=== PATIENT | female | born 1935 | race Caucasian/White ===

== ENCOUNTER → 2017-03-20 | Outpatient (CLI) | payer MEDICARE, BC ==
--- NOTE | 2017-03-20 11:44 | MM ---
Reason for exam: follow-up at short interval from prior study. Last mammogram was performed 6 months ago. History: Patient is postmenopausal, has history of other cancer at age 78, and has history of breast cancer at age 43. Family history of breast cancer in mother at age 56. Lumpectomy of the left breast, December 30, 2013. Malignant US LT VAD breast biopsy of the left breast, December 19, 2013. Radiation therapy of the left breast, 2013. Silicone gel implant in the right breast, 1979. Reduction of the left breast, 1979. Mastectomy of the right breast, 1977. Excisional biopsy of the left breast. Radiation therapy of the right breast. Took hormonal contraceptives for 5 years beginning at age 33. Took estrogen for 1 year beginning at age 43. Physical Findings: Nurse did not find any significant physical abnormalities on exam. MG 3D Diag Mammo W/Cad LT CC and MLO view(s) were taken of the left breast. Prior study comparison: September 19, 2016, left breast MG 3d diag mammo w/cad LT. September 16, 2015, left breast MG 3d diag mammo w/cad LT. The breast tissue is heterogeneously dense. This may lower the sensitivity of mammography. Benign calcifications. Post operative distortion in the left breast. These results were verbally communicated with the patient and result sheet given to the patient on 03/20/17. ASSESSMENT: Benign, BI-RAD 2 RECOMMENDATION: Follow-up diagnostic mammogram of the left breast in 6 months. Back on schedule August 2017.
== END | disposition home or self-care (01) ==
LOC: RADMAMWWP 10:45
PROVIDERS: ATTEND Radiology Diagnostic Radiology
DX: Z08 Encounter for follow-up examination after completed treatment for malignant neoplasm (principal); Z85.3 Personal history of malignant neoplasm of breast
CPT/HCPCS: G0206; G0279

== ENCOUNTER 2017-12-09 21:20 | Inpatient (IN) | payer MEDICARE, BC ==
[2017-12-09] MEDS ORDERED: SODIUM CHLORIDE 0.9% 1,000 ML IV STA (21:54)
[2017-12-09] MEDS ORDERED: MORPHINE SULFATE 2 MG/ML SYRINGE IVP STA (22:11)
[2017-12-09] MEDS ORDERED: NITROGLYCERIN SL TABS 0.4 MG TAB SUBLINGUAL STA (22:17)
[2017-12-09] MEDS ORDERED: LABETALOL 5 MG/ML VIAL MDV IVP STA (22:18)
--- NOTE | 2017-12-09 22:23 | ED ---
SOB HPI - General Chief Complaint: Shortness of Breath Stated Complaint: Coughing up blood, SOB Time Seen by Provider: 12/09/17 21:36 Source: patient, RN notes reviewed, old records reviewed Mode of arrival: ambulatory Limitations: no limitations - History of Present Illness Initial Comments: 82-year-old female history of episodes of coughing up blood today. She reports she was brushing her teeth and all this and had severe coughing episodes with approximately one to 2 cups of blood that she spit up. Patient reports that she has had no fever or chills. She reports that when she arrived to ED she started to become short of breath. She also complains of some heaviness on her chest. Patient states that she has had no history of heart disease. She reports she has history of breast cancer with remission. Patient states that she has no abdominal pain. She reports she's had normal bowel movements today. She reports is relatively active patient. She exercises multiple times during the week. - Related Data Allergies Allergy/AdvReac Type Severity Reaction Status Date / Time No Known Allergies Allergy Verified 12/09/17 21:31 Review of Systems ROS Statement: Those systems with pertinent positive or pertinent negative responses have been documented in the HPI. ROS Other: All systems not noted in ROS Statement are negative. Past Medical History Past Medical History: Thyroid Disorder History of Any Multi-Drug Resistant Organisms: None Reported Past Surgical History: Appendectomy, Breast Surgery, Hysterectomy Additional Past Surgical History / Comment(s): right side masectomy; left side breast lumpectomy Past Psychological History: No Psychological Hx Reported Smoking Status: Former smoker Past Alcohol Use History: None Reported Past Drug Use History: None Reported General Exam - General Exam Comments Initial Comments: 82-year-old female. Patient appears in moderate distress and discomfort. Limitations: no limitations General appearance: alert, in no apparent distress Head exam: Present: atraumatic, normocephalic, normal inspection Eye exam: Present: normal appearance, PERRL, EOMI. Absent: scleral icterus, conjunctival injection, periorbital swelling ENT exam: Present: normal exam, mucous membranes moist Neck exam: Present: normal inspection. Absent: tenderness, meningismus, lymphadenopathy Respiratory exam: Present: decreased breath sounds (diminished right lower lung sounds), other (Patient has some diminished lung sounds noted over right. ). Absent: normal lung sounds bilaterally, respiratory distress, wheezes, rales, rhonchi, stridor Cardiovascular Exam: Present: regular rate, normal rhythm, normal heart sounds. Absent: systolic murmur, diastolic murmur, rubs, gallop, clicks GI/Abdominal exam: Present: soft, normal bowel sounds. Absent: distended, tenderness, guarding, rebound, rigid Back exam: Present: normal inspection Neurological exam: Present: alert, oriented X3, CN II-XII intact Psychiatric exam: Present: normal affect, normal mood Skin exam: Present: warm, dry, intact, normal color. Absent: rash Course Vital Signs 12/09/17 12/09/17 12/09/17 21:27 22:09 22:25 Temperature 98.1 F Pulse Rate 115 H 94 96 Pulse Rate [ Publication Manager ] Respiratory 22 18 20 Rate Blood Pressure 229/96 209/84 151/65 O2 Sat by Pulse 93 L 99 100 Oximetry 12/09/17 12/09/17 12/10/17 22:40 23:03 00:31 Temperature 97.6 F Pulse Rate 93 93 Pulse Rate [ 92 Publication Manager ] Respiratory 18 18 Rate Blood Pressure 152/70 170/76 O2 Sat by Pulse 98 96 Oximetry 12/10/17 12/10/17 12/10/17 01:29 01:45 02:00 Temperature 97.4 F L Pulse Rate 92 88 96 Pulse Rate [ Publication Manager ] Respiratory 18 20 Rate Blood Pressure 170/74 165/78 O2 Sat by Pulse 99 97 Oximetry 12/10/17 02:02 Temperature Pulse Rate 92 Pulse Rate [ Publication Manager ] Respiratory Rate Blood Pressure O2 Sat by Pulse Oximetry Medical Decision Making - Medical Decision Making Patient is a 2-year-old female presents emergency Department with an episode of hemoptysis. She reports she coughed up one to 2 cups of blood. Patient reports that she was feeling fine prior to this. No fever or chills or other significant coughing prior to this. Patient reports that when she arrived here she started to become short of breath. Patient did arrive and seemed significantly anxious as well. Complains of a heaviness on her chest. Patient did arrive to emergency department hypertensive with blood pressure of 229/100. Patient was given IV fluids labwork obtained. Patient was given IV labetalol. Due to the chest heaviness I did give the patient nitro and aspirin. Patient EKG was performed and did show some ST abnormalities. Patient 's lab work was reviewed. Negative d-dimer. Negative troponin. White count was within normal limits. Her chest x-ray was reviewed and shows no significant abnormalities. At this time is concerned due to the patient's continued chest discomfort and the concern with the hemoptysis. CT chest was ordered. There is evidence of a right middle lobe infiltrate. This Plain patient hemoptysis, chest discomfort and shortness of breath. She had no significant wheezing. Did have some diminished lung sounds on her right side. At this time I started the patient on Levaquin for pneumonia. Given breathing treatments. Due to hemoptysis I discussed with Dr. Burroughs. We will not heparinize the patient at this time. We will complete serial cardiac enzymes. Patient's case will be discussed by Dr. Burroughs with Dr. Pena in the morning. - Lab Data Result diagrams: 12/09/17 22:00 12/09/17 22:00 Lab Results 12/09/17 12/09/17 12/09/17 Range/Units 22:00 22:00 22:00 WBC 4.8 (3.8-10.6) k/uL RBC 4.33 (3.80-5.40) m/uL Hgb 13.2 (11.4-16.0) gm/dL Hct 39.9 (34.0-46.0) % MCV 92.0 (80.0-100.0) fL MCH 30.5 (25.0-35.0) pg MCHC 33.2 (31.0-37.0) g/dL RDW 13.4 (11.5-15.5) % Plt Count 283 (150-450) k/uL Neutrophils % 55 % Lymphocytes % 32 % Monocytes % 6 % Eosinophils % 3 % Basophils % 1 % Neutrophils # 2.7 (1.3-7.7) k/uL Lymphocytes # 1.6 (1.0-4.8) k/uL Monocytes # 0.3 (0-1.0) k/uL Eosinophils # 0.1 (0-0.7) k/uL Basophils # 0.0 (0-0.2) k/uL PT (9.0-12.0) sec INR (<1.2) APTT (22.0-30.0) sec D-Dimer (<0.60) mg/L FEU Sodium 143 (137-145) mmol/L Potassium 4.5 (3.5-5.1) mmol/L Chloride 108 H (98-107) mmol/L Carbon Dioxide 26 (22-30) mmol/L Anion Gap 9 mmol/L BUN 24 H (7-17) mg/dL Creatinine 0.60 (0.52-1.04) mg/dL Est GFR (MDRD) Af Amer >60 (>60 ml/min/1.73 sqM) Est GFR (MDRD) Non-Af >60 (>60 ml/min/1.73 sqM) Glucose 124 H (74-99) mg/dL Calcium 9.3 (8.4-10.2) mg/dL Magnesium 1.9 (1.6-2.3) mg/dL Total Bilirubin 0.2 (0.2-1.3) mg/dL AST 25 (14-36) U/L ALT 37 (9-52) U/L Alkaline Phosphatase 71 (38-126) U/L Total Creatine Kinase 50 (30-135) U/L CK-MB (CK-2) 1.1 (0.0-2.4) ng/mL CK-MB (CK-2) Rel Index 2.2 Troponin I <0.012 (0.000-0.034) ng/mL NT-Pro-B Natriuret Pep pg/mL Total Protein 6.5 (6.3-8.2) g/dL Albumin 3.6 (3.5-5.0) g/dL Urine Color Urine Appearance (Clear) Urine pH (5.0-8.0) Ur Specific [place] (1.001-1.035) Urine Protein (Negative) Urine Glucose (UA) (Negative) Urine Ketones (Negative) Urine Blood (Negative) Urine Nitrite (Negative) Urine Bilirubin (Negative) Urine Urobilinogen (<2.0) mg/dL Ur Leukocyte Esterase (Negative) Urine RBC (0-5) /hpf Urine WBC (0-5) /hpf Ur Squamous Epith Cells (0-4) /hpf Urine Mucus (None) /hpf 12/09/17 12/09/17 12/09/17 Range/Units 22:00 22:00 23:45 WBC (3.8-10.6) k/uL RBC (3.80-5.40) m/uL Hgb (11.4-16.0) gm/dL Hct (34.0-46.0) % MCV (80.0-100.0) fL MCH (25.0-35.0) pg MCHC (31.0-37.0) g/dL RDW (11.5-15.5) % Plt Count (150-450) k/uL Neutrophils % % Lymphocytes % % Monocytes % % Eosinophils % % Basophils % % Neutrophils # (1.3-7.7) k/uL Lymphocytes # (1.0-4.8) k/uL Monocytes # (0-1.0) k/uL Eosinophils # (0-0.7) k/uL Basophils # (0-0.2) k/uL PT 9.7 (9.0-12.0) sec INR 1.0 (<1.2) APTT 22.6 (22.0-30.0) sec D-Dimer 0.55 (<0.60) mg/L FEU Sodium (137-145) mmol/L Potassium (3.5-5.1) mmol/L Chloride (98-107) mmol/L Carbon Dioxide (22-30) mmol/L Anion Gap mmol/L BUN (7-17) mg/dL Creatinine (0.52-1.04) mg/dL Est GFR (MDRD) Af Amer (>60 ml/min/1.73 sqM) Est GFR (MDRD) Non-Af (>60 ml/min/1.73 sqM) Glucose (74-99) mg/dL Calcium (8.4-10.2) mg/dL Magnesium (1.6-2.3) mg/dL Total Bilirubin (0.2-1.3) mg/dL AST (14-36) U/L ALT (9-52) U/L Alkaline Phosphatase (38-126) U/L Total Creatine Kinase (30-135) U/L CK-MB (CK-2) (0.0-2.4) ng/mL CK-MB (CK-2) Rel Index Troponin I (0.000-0.034) ng/mL NT-Pro-B Natriuret Pep 216 pg/mL Total Protein (6.3-8.2) g/dL Albumin (3.5-5.0) g/dL Urine Color Yellow Urine Appearance Clear (Clear) Urine pH 6.5 (5.0-8.0) Ur Specific [place] 1.015 (1.001-1.035) Urine Protein Negative (Negative) Urine Glucose (UA) Negative (Negative) Urine Ketones Negative (Negative) Urine Blood Negative (Negative) Urine Nitrite Negative (Negative) Urine Bilirubin Negative (Negative) Urine Urobilinogen <2.0 (<2.0) mg/dL Ur Leukocyte Esterase Moderate H (Negative) Urine RBC 1 (0-5) /hpf Urine WBC 14 H (0-5) /hpf Ur Squamous Epith Cells 1 (0-4) /hpf Urine Mucus Rare H (None) /hpf 12/09/17 23:10 EKG shows sinus tachycardia. Loss the left atrial enlargement. Nonspecific ST- T of normality. Ventricularly of 106 bpm. CA interval 116 oh seconds. QRS ration 80 ms. QT QTc is 320/425 ms. - Radiology Data Radiology results: report reviewed Chest x-ray shows no active cardiomegaly or disease. At her film at his aorta noted. CT chest shows Patchy pneumonic infiltrate in the right middle lobe of the right paraspinal right upper lobe consistent with pneumonia. 1-year-old infiltrate atelectasis in the lingula on the left upper lobe. No discrete pulmonary mass. Disposition Clinical Impression: Hemoptysis, Hypertensive urgency, Right lower lobe pneumonia, Chest pain Disposition: ADMITTED IP TO THIS [facility] Condition: Good Time of Disposition: 00:57
[2017-12-09 22:25] LABS: Basophils % (A) 1 %; Eosinophils # (A) 0.1 k/uL (0-0.7); Eosinophils % (A) 3 %; HCT 39.9 % (34.0-46.0); HGB 13.2 gm/dL (11.4-16.0); Lymphocytes # (A) 1.6 k/uL (1.0-4.8); Lymphocytes % (A) 32 %; MCH 30.5 pg (25.0-35.0); MCHC 33.2 g/dL (31.0-37.0); Mean Platelet Volume 6.6; Monocytes # (A) 0.3 k/uL (0-1.0); Monocytes % (A) 6 %; Neutrophils # (A) 2.7 k/uL (1.3-7.7); Neutrophils % (A) 55 %; Platelet Count 283 k/uL (150-450); RBC 4.33 m/uL (3.80-5.40); RDW 13.4 % (11.5-15.5); WBC 4.8 k/uL (3.8-10.6)
[2017-12-09 22:36] LABS: D-Dimer 0.55 mg/L FEU (<0.60)
[2017-12-09 22:38] LABS: ALT 37 U/L (9-52); AST 25 U/L (14-36); Albumin 3.6 g/dL (3.5-5.0); Alkaline Phosphatase 71 U/L (38-126); Anion Gap 9 mmol/L; Blood Urea Nitrogen 24 mg/dL (7-17); Calcium 9.3 mg/dL (8.4-10.2); Carbon Dioxide 26 mmol/L (22-30); Chloride 108 mmol/L (98-107); Glucose 124 mg/dL (74-99); Magnesium 1.9 mg/dL (1.6-2.3); Potassium 4.5 mmol/L (3.5-5.1); Sodium 143 mmol/L (137-145); Total Bilirubin 0.2 mg/dL (0.2-1.3); Total Protein 6.5 g/dL (6.3-8.2)
[2017-12-09 22:39] LABS: Creatine Kinase 50 U/L (30-135)
[2017-12-09 22:40] LABS: Partial Thromboplastin Time 22.6 sec (22.0-30.0); Prothrombin Time 9.7 sec (9.0-12.0)
--- NOTE | 2017-12-09 22:47 | XR ---
EXAMINATION TYPE: XR chest 2V DATE OF EXAM: 12/09/2017 COMPARISON: NONE HISTORY: Short of breath TECHNIQUE: Frontal and lateral views of the chest are obtained. FINDINGS: There is no heart failure nor confluent pneumonic infiltrate. Thoracic aorta is atheromato us. There is mild pulmonary hyperinflation. Costophrenic angles are clear. There are chest leads. Bon es are osteopenic. IMPRESSION: No active cardiopulmonary disease. Atheromatous aorta.
[2017-12-09 22:53] LABS: Creatine Kinase MB 1.1 ng/mL (0.0-2.4); Troponin I <0.012 ng/mL (0.000-0.034)
[2017-12-09] MEDS ORDERED: PANTOPRAZOLE 40 MG/10 ML VIAL IVP STA (23:09)
[2017-12-09 23:56] LABS: Appearance,Urine Clear (Clear); Bilirubin,Urine Negative (Negative); Blood,Urine Negative (Negative); Color,Urine Yellow; Glucose,Urine (UA) Negative (Negative); Ketones,Urine Negative (Negative); Leukocyte Esterase,Urine Moderate (Negative); Mucus,Urine Rare /hpf; Nitrite,Urine Negative (Negative); PH, Urine 6.5 (5.0-8.0); Protein,Urine Negative (Negative); RBC,Urine 1 /hpf (0-5); Specific Gravity,Urine 1.015 (1.001-1.035); Squamous Epithelial Cell,Urine 1 /hpf (0-4); Urobilinogen,Urine <2.0 mg/dL (<2.0); WBC,Urine 14 /hpf (0-5)
[2017-12-10] MEDS ORDERED: RX INFO: IV CONTRAST WAS GIVEN 1 EACH MISC MISCELLANE PRN (00:05)
--- NOTE | 2017-12-10 00:41 | CT ---
EXAMINATION TYPE: CT chest w con DATE OF EXAM: 12/10/2017 COMPARISON: NONE HISTORY: hemoptysis CT DLP: 189.50 mGycm Automated exposure control for dose reduction was used. CONTRAST: CT scan of the chest is performed with IV Contrast, patient injected with 100 mL of Omnipaque 300. FINDINGS: There is some coarse linear density in the lingula left upper lobe. There is a patchy airspace infilt rate in the right middle lobe. There is no pericardial effusion. Thoracic aorta is atheromatous. Ther e is no evidence of aortic aneurysm or dissection. There is no mediastinal adenopathy. There are no h ilar masses. There is no pleural effusion. There is some groundglass interstitial infiltrate in the r ight lower lobe. I see no focal bone destruction. There is a right breast prosthesis. IMPRESSION: There is some patchy airspace pneumonic infiltrate in the right middle lobe and in the r ight paraspinal right upper lobe consistent with pneumonia. There is linear infiltrate and atelectasi s in the lingula left upper lobe. No discrete pulmonary mass.
[2017-12-10] MEDS ORDERED: LEVOFLOXACIN 750MG-D5W PMX 750 MG in DEXTROSE/WATER 1 150ML.BAG IVPB STA (00:45)
[2017-12-10] MEDS ORDERED: IPRATROPIUM-ALBUTEROL 3 ML NEB INHALATION STA (00:58)
[2017-12-10] MEDS ORDERED: IBUPROFEN 400 MG TAB PO PRN (00:59)
[2017-12-10] MEDS ORDERED: ONDANSETRON 4 MG/2 ML VIAL IVP PRN (00:59)
[2017-12-10] MEDS ORDERED: Acetaminophen-Codeine 300-30mg TAB PO PRN (00:59)
[2017-12-10] MEDS ORDERED: NALOXONE 0.4 MG/ML 1 ML VIAL IV PRN ×2 (00:59→03:16)
[2017-12-10] MEDS ORDERED: MORPHINE SULFATE 2 MG/ML SYRINGE IV PRN (00:59)
[2017-12-10] MEDS ORDERED: PNEUMONIA PROTOCOL UTILIZED 1 EACH MISC PO PRN (01:06)
[2017-12-10] MEDS: SODIUM CHLORIDE 0.9% 1,000 ML IV SCH ×3 (01:14→15:40)
[2017-12-10 03:05] VITALS: BMI 22.6
[2017-12-10] MEDS: ALBUTEROL NEBULIZED 2.5 MG/3 ML INHALATION SCH ×4 (07:37→20:29)
[2017-12-10 08:35] LABS: Creatine Kinase 46 U/L (30-135)
[2017-12-10 08:48] LABS: Creatine Kinase MB 1.5 ng/mL (0.0-2.4); Troponin I <0.012 ng/mL (0.000-0.034)
[2017-12-10] MEDS ORDERED: PANTOPRAZOLE 40 MG/10 ML VIAL IV SCH (09:00)
[2017-12-10 14:24] LABS: Creatine Kinase 50 U/L (30-135)
[2017-12-10 14:37] LABS: Creatine Kinase MB 1.4 ng/mL (0.0-2.4); Troponin I <0.012 ng/mL (0.000-0.034)
[2017-12-10] MEDS: cefTRIAXone IN SWFI 1,000 MG/10 ML SYRINGE IVP SCH (15:40)
[2017-12-10] MEDS: AZITHROMYCIN 500 MG TAB PO SCH (15:41)
[2017-12-10] MEDS: HEPARIN SODIUM,PORCINE 5,000 UNIT/ML 1 ML VIAL SQ SCH (20:13)
--- NOTE | 2017-12-10 22:19 | P.HPIM ---
History of Present Illness H&P Date: 12/10/17 Chief Complaint: hemoptysis Patient is a 82-year-old female with a known history of hypothyroidismcame to ER with complaints of coughing of blood. Patient apparently came back from dinner and was brushing her teeth suddenly she had severe cough and had vomited 2 cups of blood which is bright red Denied any blood clots. Denied any fever or chills. No recent illnesses. Patient was also complaining of Shortness of breath and chest heavinessand he came to ER. Patient denied anysick contacts. No recent flulike infection Patient does have a right mastectomy and left breast lump radiation. Denied any abdominal pain. No recent travel. Otherwise patient is been healthy ntil this episode. no history of smoking. No weight loss No loss of appetite Review of Systems Constitutional: Patient denies any fever or chills . No generalized weakness or weight loss. Abdomen: Patient denied nausea vomiting and diarrhea and abdominal pain. Cardiovascular: Patient denies any chest pain or short of breath no palpitations. Respiratory: hemoptysis and shortness of breath. Cough without sputum production Neurologic: Patient denied any numbness or tingling headache. Musculoskeletal: Patient denies any complaints of joint swelling or deformity. Skin: Negative Psychiatric: Negative Endocrine: No heat or cold intolerance. No recent weight gain. Genitourinary: No dysuria or hematuria. All other 14 point ROS negative except the above Past Medical History Past Medical History: Thyroid Disorder History of Any Multi-Drug Resistant Organisms: None Reported Past Surgical History: Appendectomy, Breast Surgery, Hysterectomy Additional Past Surgical History / Comment(s): right side masectomy; left side breast lumpectomy Past Psychological History: No Psychological Hx Reported Smoking Status: Former smoker Past Alcohol Use History: None Reported Past Drug Use History: None Reported Medications and Allergies Home Medications Medication Instructions Recorded Confirmed Type Levothyroxine Sodium [Synthroid] 50 mcg PO DAILY 12/10/17 12/10/17 History Allergies Allergy/AdvReac Type Severity Reaction Status Date / Time No Known Allergies Allergy Verified 12/10/17 09:18 Physical Exam Vitals: Vital Signs Temp Pulse Pulse Pulse Resp BP BP 12/10/17 11:16 92 12/10/17 11:07 88 12/10/17 07:50 92 12/10/17 07:40 92 12/10/17 07:00 96.7 F L 92 16 132/62 12/10/17 04:22 97.7 F 95 16 161/68 12/10/17 03:35 20 12/10/17 02:02 92 12/10/17 02:00 97.4 F L 96 20 165/78 12/10/17 01:45 88 12/10/17 01:29 92 18 170/74 12/10/17 00:31 97.6 F 93 18 170/76 12/09/17 23:03 93 18 152/70 12/09/17 22:40 92 12/09/17 22:25 96 20 151/65 12/09/17 22:09 94 18 209/84 12/09/17 21:27 98.1 F 115 H 22 229/96 Pulse Ox 12/10/17 11:16 12/10/17 11:07 12/10/17 07:50 12/10/17 07:40 97 12/10/17 07:00 97 12/10/17 04:22 98 12/10/17 03:35 12/10/17 02:02 12/10/17 02:00 97 12/10/17 01:45 12/10/17 01:29 99 12/10/17 00:31 96 12/09/17 23:03 98 12/09/17 22:40 12/09/17 22:25 100 12/09/17 22:09 99 12/09/17 21:27 93 L Intake and Output 12/09/17 12/10/17 12/10/17 22:59 06:59 14:59 Other: # Voids 3 2 Weight 56.699 kg 56 kg PHYSICAL EXAMINATION: Patient is lying in the bed comfortably, no acute distress, awake alert and oriented.. HEENT: Normocephalic. Neck is supple. Pupils reactive. Nostrils clear. Oral cavity is moist. Ears reveal no drainage. Neck reveals no JVD, carotid bruits, or thyromegaly. CHEST EXAMINATION: Trachea is central. Symmetrical expansion. Lung asher clear to auscultation and percussion. CARDIAC: Normal S1, S2 with no gallops. systolic murmur ABDOMEN: Soft. Bowel sounds normal. No organomegaly. No abdominal bruits. Extremities: reveal no edema. No clubbing or cyanosis Neurologically awake, alert, oriented x3 with well-coordinated movements. No focal deficits noted Skin: No rash or skin lesions. Psychiatric: Cooperative. Nonsuicidal Musculoskeletal: No joint swelling or deformity. Normal range of motion. Results CBC & Chem 7: 12/09/17 22:00 12/09/17 22:00 Labs: Abnormal Lab Results - Last 24 Hours (Table) 12/09/17 12/09/17 Range/Units 22:00 23:45 Chloride 108 H (98-107) mmol/L BUN 24 H (7-17) mg/dL Glucose 124 H (74-99) mg/dL Ur Leukocyte Esterase Moderate H (Negative) Urine WBC 14 H (0-5) /hpf Urine Mucus Rare H (None) /hpf Thrombosis Risk Factor Assmnt - DVT/VTE Prophylaxis DVT/VTE Prophylaxis: Mechanical Prophylaxis ordered - Choose All That Apply Any of the Below Risk Factors Present?: No Each Risk Factor Represents 3 Points: Age 75 years or older Thrombosis Risk Factor Assessment Total Risk Factor Score: 3 Thrombosis Risk Factor Assessment Level: Moderate Risk Assessment and Plan Assessment: right lungs pneumonia Hemoptysis Hypothyroidism Plan: Patient was given a dose of levofloxacin in the ER. Patient will be continued on ceftriaxone and azithromycin Flu test negative. We will continue IV fluids and monitor H&H. We will consult pulmonary for further evaluation of hemoptysis. Discussed with the patient and family at bedside in detail. Time with Patient: Greater than 30
[2017-12-11] MEDS: IPRATROPIUM-ALBUTEROL 3 ML NEB INHALATION PRN (01:43)
[2017-12-11] MEDS: SODIUM CHLORIDE 0.9% 1,000 ML IV SCH ×2 (05:15→17:32)
[2017-12-11] MEDS: LEVOTHYROXINE 50 MCG TAB PO SCH (05:16)
--- NOTE | 2017-12-11 07:19 | XR ---
EXAMINATION TYPE: XR chest 2V DATE OF EXAM: 12/11/2017 COMPARISON: 12/09/2017 HISTORY: Shortness of breath TECHNIQUE: Frontal and lateral views of the chest are obtained. FINDINGS: Scattered senescent parenchymal changes noted. Hyperinflation compatible with COPD. There is increased patchy density within the right middle lobe which may reflect underlying pneumonia . Correlate clinically and progress studies are recommended. Heart size is stable. Mediastinal structures are stable and grossly unremarkable. No evidence for hilar prominence. Degenerative changes dorsal spine. IMPRESSION: 1. There is increased patchy density within the right middle lobe which may reflect underlying pneumo cherri. Correlate clinically and progress studies are recommended.
[2017-12-11] MEDS: cefTRIAXone IN SWFI 1,000 MG/10 ML SYRINGE IVP SCH (07:45)
[2017-12-11] MEDS: HEPARIN SODIUM,PORCINE 5,000 UNIT/ML 1 ML VIAL SQ SCH ×2 (07:45→22:49)
[2017-12-11] MEDS: PANTOPRAZOLE 40 MG TABLET PO SCH (07:46)
--- NOTE | 2017-12-11 08:10 | P.PN ---
Subjective Progress Note Date: 12/11/17 Principal diagnosis: Continuing care/clinical pneumonia. This continue present on a 2-year-old white female with known history of hypothyroidism who complains of significant hemoptysis. Right-sided pneumonia was diagnosed. She however, today after being given antibiotics she feels much better. She's emulating without difficulty. No hemoptysis is now noted since admission. No voiding difficulties otherwise noted. Temperature been afebrile. CBC is been nominal. Pulmonology has been consulted. No significant nausea, vomiting or diarrhea. Objective - Vital Signs Vital signs: Vital Signs Temp 97.7 F 12/11/17 07:00 Pulse 91 12/11/17 07:00 Resp 16 12/11/17 07:00 BP 138/63 12/11/17 07:00 Pulse Ox 95 12/11/17 07:00 Intake & Output 12/10/17 12/11/17 12/11/17 18:59 06:59 18:59 Intake Total 500 Balance 500 Intake: Oral 500 Other: # Voids 2 1 - Constitutional General appearance: Present: average body habitus - EENT Eyes: Absent: abnormal pupil - Respiratory Respiratory: bilateral: CTA - Cardiovascular Rhythm: regular Heart sounds: normal: S1, S2 - Gastrointestinal General gastrointestinal: Present: soft. Absent: tenderness - Psychiatric Psychiatric: Present: A&O x's 3, appropriate affect - Labs CBC & Chem 7: 12/09/17 22:00 12/09/17 22:00 Labs: Microbiology - Last 24 Hours (Table) 12/09/17 22:00 Blood Culture - Preliminary Blood No Growth after 24 hours Assessment and Plan (1) Chest pain Current Visit: Yes Status: Acute Code(s): R07.9 - CHEST PAIN, UNSPECIFIED SNOMED Code(s): 11491809 (2) Hemoptysis Current Visit: Yes Status: Acute Code(s): R04.2 - HEMOPTYSIS SNOMED Code(s ): 36081895 (3) Right lower lobe pneumonia Current Visit: Yes Status: Acute Code(s): J18.1 - LOBAR PNEUMONIA, UNSPECIFIED ORGANISM SNOMED Code(s): 964941122 Plan: Continue current regimen of Zithromax and ceftriaxone. UTIs noted also. The patient has been given a dose of Levaquin already. Check CBC and CMP in a.m. per I suspect hemoptysis more likely related to pneumonia. If continued improvement, anticipate discharge in next 24-48 hours.
[2017-12-11 08:35] LABS: Basophils % (A) 1 %; Eosinophils % (A) 1 %; HCT 35.6 % (34.0-46.0); HGB 11.5 gm/dL (11.4-16.0); Lymphocytes # (A) 0.8 k/uL (1.0-4.8); Lymphocytes % (A) 15 %; MCH 29.9 pg (25.0-35.0); MCHC 32.4 g/dL (31.0-37.0); MCV 92.3 fL (80.0-100.0); Mean Platelet Volume 7.1; Monocytes # (A) 0.3 k/uL (0-1.0); Monocytes % (A) 6 %; Neutrophils # (A) 4.3 k/uL (1.3-7.7); Neutrophils % (A) 77 %; Platelet Count 245 k/uL (150-450); RBC 3.85 m/uL (3.80-5.40); RDW 14.4 % (11.5-15.5); WBC 5.6 k/uL (3.8-10.6)
[2017-12-11] MEDS: ALBUTEROL NEBULIZED 2.5 MG/3 ML INHALATION SCH ×4 (08:50→20:32)
[2017-12-11 09:03] LABS: Anion Gap 7 mmol/L; Blood Urea Nitrogen 12 mg/dL (7-17); Calcium 8.6 mg/dL (8.4-10.2); Carbon Dioxide 25 mmol/L (22-30); Chloride 112 mmol/L (98-107); Glucose 109 mg/dL (74-99); Potassium 4.4 mmol/L (3.5-5.1); Sodium 144 mmol/L (137-145)
--- NOTE | 2017-12-11 12:02 | ECHOF ---
Referral Reason:function MEASUREMENTS -------- HEIGHT: 157.5 cm WEIGHT: 55.8 kg BP: IVSd: 1.2 cm (0.6 - 1.1) LVIDd: 3.2 cm (3.9 - 5.3) LVPWd: 1.1 cm (0.6 - 1.1) IVSs: 1.6 cm LVIDs: 1.8 cm LVPWs: 1.3 cm Ao Diam: 2.7 cm (2.0 - 3.7) AV Cusp: 0.9 cm (1.5 - 2.6) LA Diam: 2.6 cm (2.7 - 3.8) MV EXCURSION: 11.236 mm (> 18.000) MV EF SLOPE: 88 mm/s (70 - 150) EPSS: 0.2 cm MV E Tom: 1.31 m/s MV DecT: 132 ms MV A Tom: 1.50 m/s MV E/A Ratio: 0.87 AV maxP.40 mmHg AV meanP.27 mmHg AR PHT: 476 ms RAP: 5.00 mmHg RVSP: 50.21 mmHg FINDINGS -------- Sinus rhythm. This was a technically good study. The left ventricular size is normal. Left ventricular wall thickness is normal. Overall left vent ricular systolic function is normal with, an EF between 55 - 60 %. The right ventricle is normal in size and function. The left atrium is normal in size. The right atrium is normal in size. Aortic valve is trileaflet and is moderately thickened. There is mild aortic regurgitation. There is mild aortic stenosis present. Peak/mean gradient across the Aortic Valve is 15.40mmHg / 8.27mmH g. The mitral valve leaflets are mildly thickened. Mild mitral annular calcification present. Mild m itral regurgitation is present. [id number] tricuspid regurgitation present. There is mild to moderate pulmonary hypertension. The right ventricular systolic pressure, as measured by Doppler, is 50.21mmHg. Pulmonic valve appears structurally normal. The aortic root size is normal. Normal inferior vena cava with normal inspiratory collapse consistent with estimated right atrial pre ssure of 5 mmHg. The pericardium is normal. CONCLUSIONS -------- 1. Sinus rhythm. 2. This was a technically good study. 3. The left ventricular size is normal. 4. Left ventricular wall thickness is normal. 5. Overall left ventricular systolic function is normal with, an EF between 55 - 60 %. 6. The right ventricle is normal in size and function. 7. The left atrium is normal in size. 8. The right atrium is normal in size. 9. Aortic valve is trileaflet and is moderately thickened. 10. There is mild aortic regurgitation. 11. There is mild aortic stenosis present. 12. Peak/mean gradient across the Aortic Valve is 15.40mmHg / 8.27mmHg. 13. The mitral valve leaflets are mildly thickened. 14. Mild mitral annular calcification present. 15. Mild mitral regurgitation is present. 16. [id number] tricuspid regurgitation present. 17. There is mild to moderate pulmonary hypertension. 18. The right ventricular systolic pressure, as measured by Doppler, is 50.21mmHg. 19. Pulmonic valve appears structurally normal. 20. The aortic root size is normal. 21. Normal inferior vena cava with normal inspiratory collapse consistent with estimated right atrial pressure of 5 mmHg. 22. The pericardium is normal. THERMOMETER TESTER: Carmen Coates RDCS
--- NOTE | 2017-12-11 15:51 | P.CNPUL ---
History of Present Illness Consult date: 12/11/17 Chief complaint: Hemoptysis History of present illness: A very pleasant 82-year-old female patient who came into the hospital because of hemoptysis. The patient came in on Monday which was around 48 hours ago after she coughed bloody mucus at least 5-6 times. The patient describes bright red blood. No history of any epistaxis. No history of any upper GI bleeding. She thinks that this was coming from her lungs. No fever. No chills. No sweats. No previous history of connective tissue disease. No aspiration. The patient came in to the hospital for further advice. Hemoglobin initially was within normal limits. The chest x-ray showed no acute cardiopulmonary process. Based on that, a computed tomography scan of the chest was done and it showed limited infiltration of the right middle lobe and the patient was diagnosed having a pneumonia and the patient was placed on a combination of antibiotics. Over the past 48 hours the patient did not have any hemoptysis. I saw and evaluated this patient and she was on room air and she was emanating in the hallway. She denied having any chest pain. No shortness of breath. In fact she did not have any other complaints. I thought that the patient had a cardiac murmur an echocardiogram was done and the patient was found to have an ejection fraction of 55-60%, mild aortic regurgitation, mild aortic stenosis, mild mitral calcification, mild to moderate tricuspid regurgitation, right ventricular systolic pressure was around 50, was evidence of mild to moderate pulmonary hypertension and no other major abnormalities were noted. Initially we were planning to monitor this hemoptysis conservatively knowing that the patient was completely asymptomatic and she was having no further episodes of hemoptysis. However later on, I got called by the nurses that the patient was having hemoptysis again and for that reason I set up this patient for a flexible bronchoscopy to be done tomorrow to localize the site of bleeding. The patient has not been any form of blood thinners. No antiplatelet agents. Hemoglobin is at 13.2 and dropped down to 11.5. Correlation profile is within normal limits. Plated count is also within normal limits. Review of Systems Constitutional: Denies chills, Denies fever Eyes: denies blurred vision, denies bulging eye, denies decreased vision Ears: deny: decreased hearing, ear discharge, earache Ears, nose, mouth and throat: Denies headache, Denies sore throat Cardiovascular: Denies chest pain, Denies shortness of breath Respiratory: Reports hemoptysis Gastrointestinal: Denies abdominal pain, Denies diarrhea, Denies nausea, Denies vomiting Genitourinary: Denies dysuria, Denies hematuria Musculoskeletal: absent: ankle pain, ankle stiffness, ankle swelling Integumentary: Denies pruritus, Denies rash Neurological: Denies numbness, Denies weakness Psychiatric: Denies anxiety, Denies depression Endocrine: Denies fatigue, Denies weight change Hematologic/Lymphatic: Reports as per HPI Allergic/Immunologic: Reports as per HPI Past Medical History Past Medical History: Thyroid Disorder Additional Past Medical History / Comment(s): Breast cancer with a previous right-sided mastectomy more than 20 years ago and the patient hasn't undergone a previous lumpectomy on the left breast. She also has hypothyroidism. History of Any Multi-Drug Resistant Organisms: None Reported Past Surgical History: Appendectomy, Breast Surgery, Hysterectomy Additional Past Surgical History / Comment(s): right side masectomy; left side breast lumpectomy Past Psychological History: No Psychological Hx Reported Smoking Status: Former smoker Past Alcohol Use History: None Reported Past Drug Use History: None Reported Medications and Allergies Home Medications Medication Instructions Recorded Confirmed Type Levothyroxine Sodium [Synthroid] 50 mcg PO DAILY 12/10/17 12/10/17 History Allergies Allergy/AdvReac Type Severity Reaction Status Date / Time No Known Allergies Allergy Verified 12/10/17 09:18 Physical Exam Vitals: Vital Signs Temp Pulse Pulse Resp BP Pulse Ox 12/11/17 15:00 100.2 F H 103 H 16 152/68 96 12/11/17 12:38 104 H 12/11/17 12:25 96 12/11/17 09:02 92 12/11/17 08:50 96 12/11/17 07:00 97.7 F 91 16 138/63 95 12/11/17 01:53 100 12/11/17 01:43 100 12/10/17 23:00 97.9 F 104 H 20 135/66 95 12/10/17 16:26 92 12/10/17 16:12 92 Intake and Output 12/11/17 12/11/17 12/11/17 06:59 14:59 22:59 Intake Total 100 840 Balance 100 840 Intake: Intake, IV Titration 600 Amount Sodium Chloride 0.9% 1, 600 000 ml @ 75 mls/hr IV . [id number] [facility] Rx#:[id number] Oral 100 240 Other: # Voids 1 The patient appeared well nourished and normally developed. Vital signs as documented. Head exam is unremarkable. No scleral icterus or corneal arcus noted. Neck is without jugular venous distension, thyromegaly, or carotid bruits. Carotid upstrokes are brisk bilaterally. Lungs are clear to auscultation and percussion. Cardiac exam reveals the PMI to be normally sized and situated. Rhythm is regular. First and second heart sounds normal. No murmurs, rubs or gallops. Abdominal exam reveals normal bowel sounds, no masses , no organomegaly and no aortic enlargement. Extremities are nonedematous and both femoral and pedal pulses are normal.Examination of the skin revealed no evidence of significant rashes, suspicious appearing nevi or other concerning lesions. Neurologically the patient is awake and alert and there is no focal neurological deficit at this point. Psychiatrically the patient has a appropriate mood and affect. Results - Laboratory Findings CBC and BMP: 12/11/17 08:11 12/11/17 08:11 PT/INR, D-dimer PT 9.7 sec (9.0-12.0) 12/09/17 22:00 INR 1.0 (<1.2) 12/09/17 22:00 D-Dimer 0.55 mg/L FEU (<0.60) 12/09/17 22:00 Abnormal lab findings: Abnormal Labs 12/09/17 12/09/17 12/11/17 22:00 23:45 08:11 Lymphocytes # 0.8 L Chloride 108 H BUN 24 H Creatinine Glucose 124 H Ur Leukocyte Esterase Moderate H Urine WBC 14 H Urine Mucus Rare H 12/11/17 08:11 Lymphocytes # Chloride 112 H BUN Creatinine 0.48 L Glucose 109 H Ur Leukocyte Esterase Urine WBC Urine Mucus - Diagnostic Findings Chest x-ray: image reviewed CT scan - chest: image reviewed Assessment and Plan Plan: Assessment 1 acute and recurrent hemoptysis, under investigation 2 acute right midlung pulmonary infiltration, rule out pneumonia 3 breast cancer, remote history of 4 hypothyroidism 5 cardiac murmur with mild aortic stenosis, [id number] pulmonary hypertension Plan Continue current antibiotic coverage. Echocardiogram was noted. Proceed with a flexible bronchoscopy to localize site of bleeding in a.m. The procedure was explained to the patient and the patient was agreeable. Keep her nothing by mouth after midnight. We'll proceed with bronchoscopy in a.m.
[2017-12-11] MEDS: AZITHROMYCIN 500 MG TAB PO SCH (16:05)
[2017-12-11] MEDS: CEFUROXIME 250 MG TAB PO SCH (22:48)
[2017-12-12] MEDS: LEVOTHYROXINE 50 MCG TAB PO SCH (05:48)
[2017-12-12] MEDS: ALBUTEROL NEBULIZED 2.5 MG/3 ML INHALATION SCH ×4 (07:38→21:06)
[2017-12-12] MEDS: CEFUROXIME 250 MG TAB PO SCH ×2 (07:58→21:21)
[2017-12-12] MEDS: ACETAMINOPHEN TAB 325 MG TAB PO PRN (07:58)
[2017-12-12] MEDS: PANTOPRAZOLE 40 MG TABLET PO SCH (07:58)
[2017-12-12] MEDS: HEPARIN SODIUM,PORCINE 5,000 UNIT/ML 1 ML VIAL SQ SCH ×2 (07:58→21:22)
[2017-12-12] MEDS: SODIUM CHLORIDE 0.9% 1,000 ML IV SCH ×2 (08:00→18:06)
--- NOTE | 2017-12-12 08:28 | P.PN ---
Subjective Principal diagnosis: Continuing care/clinical pneumonia. This is a continue proximal not a 2-year-old white female sentiment admitted for right sided pneumonia. She has significant hemoptysis and this continued last night. The patient is not scheduled for bronchoscopy. I do appreciate pulmonology input. Objective - Vital Signs Vital signs: Vital Signs Temp 99.5 F 12/12/17 07:00 Pulse 108 H 12/12/17 07:49 Resp 17 12/12/17 07:00 BP 159/76 12/12/17 07:00 Pulse Ox 92 L 12/12/17 07:00 Intake & Output 12/11/17 12/12/17 12/12/17 18:59 06:59 18:59 Intake Total 840 Balance 840 Intake: Intake, IV Titration 600 Amount Sodium Chloride 0.9% 1, 600 000 ml @ 75 mls/hr IV . [id number] [facility] Rx#:[id number] Oral 240 Other: # Voids 1 - Constitutional General appearance: Present: average body habitus - EENT Eyes: Absent: abnormal pupil - Respiratory Respiratory: bilateral: diminished - Cardiovascular Rhythm: regular Heart sounds: normal: S1, S2 - Gastrointestinal General gastrointestinal: Present: soft, tenderness - Musculoskeletal Musculoskeletal: Present: strength equal bilaterally - Labs CBC & Chem 7: 12/11/17 08:11 12/11/17 08:11 Labs: Abnormal Lab Results - Last 24 Hours (Table) 12/11/17 12/11/17 Range/Units 08:11 08:11 Lymphocytes # 0.8 L (1.0-4.8) k/uL Chloride 112 H (98-107) mmol/L Creatinine 0.48 L (0.52-1.04) mg/dL Glucose 109 H (74-99) mg/dL Microbiology - Last 24 Hours (Table) 12/10/17 15:15 Gram Stain - Preliminary Sputum 12/09/17 22:00 Blood Culture - Preliminary Blood No Growth after 48 hours 12/11/17 11:15 Urine Culture - Preliminary Urine,Clean Catch Assessment and Plan (1) Chest pain Current Visit: Yes Status: Acute Code(s): R07.9 - CHEST PAIN, UNSPECIFIED SNOMED Code(s): 56452004 (2) Hemoptysis Current Visit: Yes Status: Acute Code(s): R04.2 - HEMOPTYSIS SNOMED Code(s ): 54068081 (3) Right lower lobe pneumonia Current Visit: Yes Status: Acute Code(s): J18.1 - LOBAR PNEUMONIA, UNSPECIFIED ORGANISM SNOMED Code(s): 763808780 Plan: Await bronchoscopy results. Appreciate pulmonology input. I did discuss prognostic indicators for hemoptysis with the patient. She is agreeable for the procedure at this time.
[2017-12-12 10:18] LABS: HCT 33.8 % (34.0-46.0); HGB 10.9 gm/dL (11.4-16.0); MCH 29.7 pg (25.0-35.0); MCHC 32.4 g/dL (31.0-37.0); MCV 91.7 fL (80.0-100.0); Mean Platelet Volume 6.9; Platelet Count 245 k/uL (150-450); RBC 3.68 m/uL (3.80-5.40); RDW 13.4 % (11.5-15.5); WBC 7.6 k/uL (3.8-10.6)
[2017-12-12 10:37] LABS: ALT 32 U/L (9-52); AST 22 U/L (14-36); Alkaline Phosphatase 67 U/L (38-126); Anion Gap 9 mmol/L; Blood Urea Nitrogen 12 mg/dL (7-17); Calcium 8.4 mg/dL (8.4-10.2); Carbon Dioxide 24 mmol/L (22-30); Chloride 112 mmol/L (98-107); Glucose 104 mg/dL (74-99); Potassium 3.7 mmol/L (3.5-5.1); Sodium 145 mmol/L (137-145); Total Bilirubin 0.7 mg/dL (0.2-1.3); Total Protein 5.5 g/dL (6.3-8.2)
[2017-12-12] MEDS ORDERED: PROPOFOL 10 MG/ML 20 ML VIAL IV ONE (11:54)
[2017-12-12] MEDS ORDERED: KETAMINE 10 MG/ML 20 ML VIAL ONE (11:54)
[2017-12-12] MEDS ORDERED: MIDAZOLAM 2 MG/2 ML VIAL ONE (11:54)
[2017-12-12] MEDS ORDERED: GLYCOPYRROLATE 0.2 MG/ML 2 ML VIAL ONE (11:54)
[2017-12-12] MEDS ORDERED: IV FLUID CONTINUATION 1,000 ML IV ONE (12:00)
[2017-12-12] MEDS ORDERED: LIDOCAINE 2% INJ 20 MG/ML INTRATRACH ONE (12:38)
--- NOTE | 2017-12-12 12:44 | P.PN ---
Subjective Progress Note Date: 12/12/17 on 12/12/2017, the patient was seen preoperatively. She was seen in consultation yesterday and the plan is to go ahead and performed a bronchoscopy today regarding her recurrent episodes of hemoptysis. Note that the patient was coughing out bright red blood and this occurred yesterday after my consultation and overnight she had a few more episodes and based on these ongoing symptoms we will proceed with a bronchoscopy. She was agreeable to the procedure. No chest pain. No fever or chills. No sweats. No pleurisy. No other complaints otherwise for now. Pulse ox on room air remains above 90%. Echocardiogram was also noted. Objective - Vital Signs Vital signs: Vital Signs Temp 99.5 F 12/12/17 07:00 Pulse 108 H 12/12/17 07:49 Resp 17 12/12/17 07:00 BP 159/76 12/12/17 07:00 Pulse Ox 92 L 12/12/17 07:00 Intake & Output 12/11/17 12/12/17 12/12/17 18:59 06:59 18:59 Intake Total 840 Balance 840 Intake: Intake, IV Titration 600 Amount Sodium Chloride 0.9% 1, 600 000 ml @ 75 mls/hr IV . [id number] [facility] Rx#:[id number] Oral 240 Other: # Voids 1 - Exam The patient appeared well nourished and normally developed. Vital signs as documented. Head exam is unremarkable. No scleral icterus or corneal arcus noted. Neck is without jugular venous distension, thyromegaly, or carotid bruits. Carotid upstrokes are brisk bilaterally. Lungs are clear to auscultation and percussion. Cardiac exam reveals the PMI to be normally sized and situated. Rhythm is regular. First and second heart sounds normal. No murmurs, rubs or gallops. Abdominal exam reveals normal bowel sounds, no masses , no organomegaly and no aortic enlargement. Extremities are nonedematous and both femoral and pedal pulses are normal.Examination of the skin revealed no evidence of significant rashes, suspicious appearing nevi or other concerning lesions. Neurologically the patient is awake and alert and there is no focal neurological deficit at this point. Psychiatrically the patient has a appropriate mood and affect. - Labs CBC & Chem 7: 12/12/17 09:13 12/12/17 09:13 Labs: Abnormal Lab Results - Last 24 Hours (Table) 12/12/17 12/12/17 Range/Units 09:13 09:13 RBC 3.68 L (3.80-5.40) m/uL Hgb 10.9 L (11.4-16.0) gm/dL Hct 33.8 L (34.0-46.0) % Chloride 112 H (98-107) mmol/L Creatinine 0.50 L (0.52-1.04) mg/dL Glucose 104 H (74-99) mg/dL Total Protein 5.5 L (6.3-8.2) g/dL Albumin 3.0 L (3.5-5.0) g/dL Microbiology - Last 24 Hours (Table) 12/10/17 15:15 Gram Stain - Preliminary Sputum 12/09/17 22:00 Blood Culture - Preliminary Blood No Growth after 48 hours 12/11/17 11:15 Urine Culture - Preliminary Urine,Clean Catch Assessment and Plan Plan: Assessment 1 acute and recurrent hemoptysis, under investigation 2 acute right midlung pulmonary infiltration, rule out pneumonia 3 breast cancer, remote history of 4 hypothyroidism 5 cardiac murmur with mild aortic stenosis, [id number] pulmonary hypertension Plan proceed with a bronchoscopy today to evaluate and identify the source of bleeding accordingly. Patient is agreeable for the procedure. We'll proceed with bronchoscopy and further recommendations are to follow.
--- NOTE | 2017-12-12 12:50 | P.PCN ---
Date of Procedure: 12/12/17 Preoperative Diagnosis: hemoptysis Postoperative Diagnosis: endobronchial lesion located in the distal right mainstem bronchus/bronchus intermedius area Procedure(s) Performed: flexible bronchoscopy, endobronchial biopsies, bronchial alveolar lavage Anesthesia: RIANNAA Surgeon: Iam De La Vega Estimated Blood Loss (ml): 0 Pathology: other Condition: stable Disposition: floor Operative Findings: procedure was done under conscious sedation. Anesthetic agent was administered by anesthesia at the bedside. The procedure was done in the endoscopy suite. A timeout was obtained and the consent was signed After achieving adequate sedation flexible bronchoscope was inserted through the left nostril. Examination of posterior oropharynx, larynx, vallecula, epiglottis, true and false vocal cords and arytenoids were all within normal limits. There was no source of any upper airway bleeding in this patient. Vocal cord function and and there was no lesions or polyps identified. A total of 2 mL of 1% lidocaine was applied to the vocal cords and following that the patient was intubated using the flexible bronchoscope. Airway inspection was done. Note that there was some old blood clot identified in the trachea and the origin of these blood clots was from the right mainstem bronchus. Examination of the trachea itself showed no evidence of any endobronchial lesions or tumors. Examination of the left mainstem bronchus left upper and left lower lobe bronchus was done and the findings were essentially within normal limits without any acute abnormalities. Following that the bronchoscope was moved to the right mainstem bronchus and there was significant amount of bright red blood occupying the airway. Therapeutic airway suctioning was done. Underlying bronchial mucosa was quite inflamed and irritated. After completing the airway from blood, airway inspection was completed and there was a growth within the proximal bronchus intermedius/distal right mainstem bronchus area. This was a very sessile polypoid lesion that was originating from the right middle lobe. I was unable to pass the bronchoscope through the mitral middle lobe knowing that there was some blood clots occupying the airway and I suspect that the lung was originating from the right middle lobe itself and extending into the bronchus intermedius. Right upper lobe bronchus was visualized and was within normal limits. A limited view of the right lower lobe bronchus was done and was patent along with various segments. At this point, and the bronchial biopsies of this polypoid lesion that was present in the bronchus intermedius was done. Multiple endobronchial biopsies were obtained. No active bleed was identified. There was clear to me that this was the source of bleeding under the service of the lesion was quite friable and vascular. Athe and of the procedure and bronchial lavage of the right middle lobe area was done. A total of 60 mL of fluid was infused and 25-30 mL of fluid was suctioned back. Therapeutic airway suctioning was done and the bronchoscope was removed and the patient was transferred recovery in stable condition. We'll be awaiting the results of the endobronchial biopsy and further recommendations are to follow.
[2017-12-12] MEDS: AZITHROMYCIN 500 MG TAB PO SCH (15:15)
[2017-12-12 16:48] VITALS: RESP 16
[2017-12-12 17:35] LABS: Appearance,BF Bloody; Color,BF Red
[2017-12-12 17:36] LABS: Nucleated Cells, Body Fluid 390 /uL; RBC, Body Fluid 70000 /uL
[2017-12-12 17:48] LABS: Total Cells Counted,Body Fluid 100
[2017-12-12 17:49] LABS: Mononuclear WBC,Body Fluid 14 %; Polynuclear WBC,Body Fluid 85 %
[2017-12-12] MEDS: BISMUTH SUBSALICYLATE 4,192 MG/240 ML BOTTLE PO PRN ×2 (18:03→22:13)
[2017-12-13] MEDS: IPRATROPIUM-ALBUTEROL 3 ML NEB INHALATION PRN (06:01)
[2017-12-13] MEDS: LEVOTHYROXINE 50 MCG TAB PO SCH (06:42)
[2017-12-13 07:58] VITALS: BP 149/76; PULSE 107; TEMP 99.3
[2017-12-13] MEDS: PANTOPRAZOLE 40 MG TABLET PO SCH (08:08)
[2017-12-13] MEDS: HEPARIN SODIUM,PORCINE 5,000 UNIT/ML 1 ML VIAL SQ SCH (08:08)
[2017-12-13] MEDS: CEFUROXIME 250 MG TAB PO SCH (08:08)
[2017-12-13] MEDS: SODIUM CHLORIDE 0.9% 1,000 ML IV SCH (08:09)
[2017-12-13] MEDS: ACETAMINOPHEN TAB 325 MG TAB PO PRN (08:13)
--- NOTE | 2017-12-13 08:13 | P.PN ---
Subjective Principal diagnosis: Continuing care/clinical pneumonia. This is an 82-year-old white female essentially status post bronchoscopy. A bronchial lesion is found and pathology is now pending. She's had difficulty sleeping secondary to her roommate. Otherwise, I advised the patient to hold discharge until she knows tissue diagnosis. She is somewhat reluctant to do any type of aggressive treatment if it is found to be malignancy. Objective - Vital Signs Vital signs: Vital Signs Temp 99.3 F 12/13/17 07:00 Pulse 107 H 12/13/17 07:00 Resp 16 12/13/17 07:00 BP 149/76 12/13/17 07:00 Pulse Ox 89 L 12/13/17 07:00 Intake & Output 12/12/17 12/13/17 12/13/17 18:59 06:59 18:59 Intake Total 1250 Balance 1250 Intake: IV 650 Intake, IV Titration 600 Amount Sodium Chloride 0.9% 1, 600 000 ml @ 75 mls/hr IV . [id number] [facility] Rx#:[id number] Other: # Voids 1 1 # Bowel Movements 0 - Constitutional General appearance: Present: average body habitus - EENT Eyes: Absent: abnormal pupil - Respiratory Respiratory: bilateral: CTA - Cardiovascular Rhythm: regular Heart sounds: normal: S1, S2 - Gastrointestinal General gastrointestinal: Present: soft. Absent: tenderness - Musculoskeletal Musculoskeletal: Present: gait normal - Psychiatric Psychiatric: Present: A&O x's 3, appropriate affect - Labs CBC & Chem 7: 12/12/17 09:13 12/12/17 09:13 Labs: Abnormal Lab Results - Last 24 Hours (Table) 12/12/17 12/12/17 Range/Units 09:13 09:13 RBC 3.68 L (3.80-5.40) m/uL Hgb 10.9 L (11.4-16.0) gm/dL Hct 33.8 L (34.0-46.0) % Chloride 112 H (98-107) mmol/L Creatinine 0.50 L (0.52-1.04) mg/dL Glucose 104 H (74-99) mg/dL Total Protein 5.5 L (6.3-8.2) g/dL Albumin 3.0 L (3.5-5.0) g/dL Microbiology - Last 24 Hours (Table) 12/12/17 12:30 Acid Fast Bacilli Culture - Preliminary Bronchial Washings - Right 12/12/17 12:30 Bronchial Washings Culture - Preliminary Bronchial Washings - Right 12/12/17 12:30 Fungal Culture - Preliminary Bronchial Washings - Right 12/09/17 22:00 Blood Culture - Preliminary Blood No Growth after 72 hours 12/11/17 11:15 Urine Culture - Final Urine,Clean Catch 12/10/17 15:15 Gram Stain - Preliminary Sputum Assessment and Plan (1) Chest pain Current Visit: Yes Status: Acute Code(s): R07.9 - CHEST PAIN, UNSPECIFIED SNOMED Code(s): 56843335 (2) Hemoptysis Current Visit: Yes Status: Acute Code(s): R04.2 - HEMOPTYSIS SNOMED Code(s ): 88377109 (3) Right lower lobe pneumonia Current Visit: Yes Status: Acute Code(s): J18.1 - LOBAR PNEUMONIA, UNSPECIFIED ORGANISM SNOMED Code(s): 882812488 Plan: Again, and a proximal lesion is noted. Treat for pneumonia otherwise. She's had underlying history of previous breast cancer with radiation and has remote smoking risk factor. Had a long discussion regarding prognostic indicators. Anticipate discharge once cleared by pulmonology and pathology is known and the patient understands her options.
[2017-12-13] MEDS: ALBUTEROL NEBULIZED 2.5 MG/3 ML INHALATION SCH ×2 (08:29→11:38)
--- NOTE | 2017-12-13 15:52 | P.PN ---
Subjective Progress Note Date: 12/13/17 Principal diagnosis: Acute and recurrent hemoptysis, secondary to bleeding from polypoid lesion originating from the right middle lobe A very pleasant 82-year-old female patient who came into the hospital because of hemoptysis. The patient came in on Monday which was around 48 hours ago after she coughed bloody mucus at least 5-6 times. The patient describes bright red blood. No history of any epistaxis. No history of any upper GI bleeding. She thinks that this was coming from her lungs. No fever. No chills. No sweats. No previous history of connective tissue disease. No aspiration. The patient came in to the hospital for further advice. Hemoglobin initially was within normal limits. The chest x-ray showed no acute cardiopulmonary process. Based on that, a computed tomography scan of the chest was done and it showed limited infiltration of the right middle lobe and the patient was diagnosed having a pneumonia and the patient was placed on a combination of antibiotics. Over the past 48 hours the patient did not have any hemoptysis. I saw and evaluated this patient and she was on room air and she was emanating in the hallway. She denied having any chest pain. No shortness of breath. In fact she did not have any other complaints. I thought that the patient had a cardiac murmur an echocardiogram was done and the patient was found to have an ejection fraction of 55-60%, mild aortic regurgitation, mild aortic stenosis, mild mitral calcification, mild to moderate tricuspid regurgitation, right ventricular systolic pressure was around 50, was evidence of mild to moderate pulmonary hypertension and no other major abnormalities were noted. Initially we were planning to monitor this hemoptysis conservatively knowing that the patient was completely asymptomatic and she was having no further episodes of hemoptysis. However later on, I got called by the nurses that the patient was having hemoptysis again and for that reason I set up this patient for a flexible bronchoscopy to be done tomorrow to localize the site of bleeding. The patient has not been any form of blood thinners. No antiplatelet agents. Hemoglobin is at 13.2 and dropped down to 11.5. Correlation profile is within normal limits. Plated count is also within normal limits. On 12/13/2017 patient is seen in follow-up after bronchoscopy, endobronchial biopsies and bronchial alveolar lavage. Source of the bleeding seems to be originating from a polypoid lesion originating from the right middle lobe. She has had no further hemoptysis. Still has some exertional dyspnea, lung sounds are diminished over right lower lobe, with a few rales. No signs are stable, she is on room air O2 sat between 89-91%. She has been ambulating in the streeter, tolerating it well. Afebrile. His hemoglobin is 10.9, WBC 7.6. Bronchial washing culture as well as pathology report is pending. Patient remains stable from pulmonary standpoint, is stable for discharge home today. Objective - Vital Signs Vital signs: Vital Signs Temp 99.3 F 12/13/17 07:00 Pulse 107 H 12/13/17 07:00 Resp 16 12/13/17 07:00 BP 149/76 12/13/17 07:00 Pulse Ox 89 L 12/13/17 07:00 Intake & Output 12/12/17 12/13/17 12/13/17 18:59 06:59 18:59 Intake Total 1250 Balance 1250 Intake: IV 650 Intake, IV Titration 600 Amount Sodium Chloride 0.9% 1, 600 000 ml @ 75 mls/hr IV . [id number] [facility] Rx#:[id number] Other: # Voids 1 1 # Bowel Movements 0 - Exam The patient appeared well nourished and normally developed. Vital signs as documented. Head exam is unremarkable. No scleral icterus or corneal arcus noted. Neck is without jugular venous distension, thyromegaly, or carotid bruits. Carotid upstrokes are brisk bilaterally. Lungs are diminished over right lower lobe with a few scattered rales, clear on the left. Cardiac exam reveals the PMI to be normally sized and situated. Rhythm is regular. First and second heart sounds normal. No murmurs, rubs or gallops. Abdominal exam reveals normal bowel sounds, no masses, no organomegaly and no aortic enlargement. Extremities are nonedematous and both femoral and pedal pulses are normal.Examination of the skin revealed no evidence of significant rashes, suspicious appearing nevi or other concerning lesions. Neurologically the patient is awake and alert and there is no focal neurological deficit at this point. Psychiatrically the patient has a appropriate mood and affect. - Labs CBC & Chem 7: 12/12/17 09:13 12/12/17 09:13 Labs: Microbiology - Last 24 Hours (Table) 12/10/17 15:15 Gram Stain - Final Sputum Sputum Culture - Final 12/12/17 12:30 Gram Stain - Preliminary Bronchial Washings - Right Bronchial Washings Culture - Preliminary 12/12/17 12:30 Acid Fast Bacilli Culture - Preliminary Bronchial Washings - Right 12/12/17 12:30 Fungal Culture - Preliminary Bronchial Washings - Right 12/09/17 22:00 Blood Culture - Preliminary Blood No Growth after 72 hours 12/11/17 11:15 Urine Culture - Final Urine,Clean Catch Assessment and Plan Plan: Assessment 1 acute and recurrent hemoptysis, bronchoscopy on 12/12/2017 showed a polypoid lesion originating from the right middle lobe that seems to be the source of bleeding. Bronchial biopsies were obtained, bronchial alveolar lavage was done. Results of the endobronchial biopsy and bronch wash cultures 2 acute right midlung pulmonary infiltration, rule out pneumonia 3 breast cancer, remote history of 4 hypothyroidism 5 cardiac murmur with mild aortic stenosis, [id number] pulmonary hypertension Plan Bronchial washing cultures and endobronchial biopsy results are pending. Patient remains stable from pulmonary standpoint, no further hemoptysis. Patient can finish outpatient course of Ceftin and Zithromax. Follow-up appointment with Dr. De La Vega in the office in one week. She was told to come to the hospital if there is any recurrence of the hemoptysis or any increased shortness of breath. I performed a history & physical examination of the patient and discussed their management with my nurse practitioner, Lisette Christian. I reviewed the nurse practitioner's note and agree with the documented findings and plan of care. Lung sounds are diminished with a few scattered rales over right lower lobe. The findings and the impression was discussed with the patient. I attest to the documentation by the nurse practitioner. Time with Patient: Less than 30
--- NOTE | 2017-12-31 18:29 | P.DS ---
Providers Date of admission: 12/10/17 01:12 Attending physician: Kalen Allen Consults: 12/10/17 16:10 Consult Physician Routine Consulting Provider: Casey Torre Consult Reason/Comments: hemoptysis Do you want consulting provider notified?: Yes Primary care physician: Kalen Allen - Discharge Diagnosis(es) (1) Chest pain Status: Acute (2) Hemoptysis Status: Acute (3) Right lower lobe pneumonia Status: Acute Hospital Course: This is a discharge summary an 82-year-old white female centimeter for pneumonia with hemoptysis. Bronchoscopy did show mass. The patient wished to be discharged prior to knowing the pathology. Once this is cleared by pulmonology, the patient is stable enough for discharge she is tolerating diet without fever. She has an underlying history of previous breast cancer and radiation. Patient Condition at Discharge: Good Plan - Discharge Summary New Discharge Prescriptions: New Acetaminophen Tab [Tylenol] 650 mg PO Q6HR PRN tab PRN Reason: Mild Pain Or Fever > 100.5 Cefuroxime [Ceftin] 500 mg PO BID #14 tab Continue Levothyroxine Sodium [Synthroid] 50 mcg PO QAM No Action Naproxen Sodium [Aleve] 1 tab PO PRN PRN Reason: Headache Discharge Medication List Levothyroxine Sodium [Synthroid] 50 mcg PO QAM 12/10/17 [History] Acetaminophen Tab [Tylenol] 650 mg PO Q6HR PRN tab 12/13/17 [Rx] Cefuroxime [Ceftin] 500 mg PO BID #14 tab 12/13/17 [Rx] Naproxen Sodium [Aleve] 1 tab PO PRN 12/20/17 [History] Follow up Appointment(s)/Referral(s): Kalen Allen MD [Primary Care Provider] - 12/18/17 (Office closed, please call for appointment.) Iam De La Vega MD [STAFF PHYSICIAN] - 12/20/17 (Office currently closed, please call for appointment. ) Patient Instructions/Handouts: Pneumonia (DC) Activity/Diet/Wound Care/Special Instructions: Regular diet. Activity as tolerated. Discharge Disposition: HOME SELF-CARE
== END 2017-12-13 13:54 | disposition home or self-care (01) | DRG 167 ==
LOC: EC 21:20 → 4MS4W 12-10 01:12
PROVIDERS: ADMIT Family Medicine; ATTEND Family Medicine
DX: J18.9 Pneumonia, unspecified organism (principal); R04.2 Hemoptysis; I27.20 Pulmonary hypertension, unspecified; I08.3 Combined rheumatic disorders of mitral, aortic and tricuspid valves; I10 Essential (primary) hypertension; E03.9 Hypothyroidism, unspecified; G47.9 Sleep disorder, unspecified; I16.0 Hypertensive urgency; Z85.3 Personal history of malignant neoplasm of breast; Z87.891 Personal history of nicotine dependence; Z90.710 Acquired absence of both cervix and uterus; Z90.11 Acquired absence of right breast and nipple; Z79.899 Other long term (current) drug therapy
CPT/HCPCS: 31624; 31625; 36415; 71046; 71260; 80048; 80053; 81001; 82550; 82553; 83735; 83880; 84484; 85025; 85027; 85379; 85610; 85730; 87040; 87070; 87086; 87102; 87116; 87205; 87206; 87252; 87496; 87498; 87502; 87529; 87634; 87798; 88108; 88305; 89050; 93005; 93306; 94640; 94760; 96361; 96365; 96374; 96375; 99291

== ENCOUNTER 2017-12-20 10:50 | Day surgery (SDC) | payer MEDICARE, BC ==
[2017-12-19 10:34] VITALS: BMI 23.8
[~2017-12-20 10:50] MED LIST: ALBUTEROL NEB (CONC) 2.5 MG/0.5 ML INHALATION ONE; LACTATED RINGERS 1,000 ML IV ONE; LIDOCAINE 2% (PF) 20 MG/ML 2 ML AMP INHALATION ONE
[2017-12-20] MEDS ORDERED: LACTATED RINGERS 1,000 ML IV SCH (11:07)
[2017-12-20] MEDS ORDERED: LIDOCAINE 1% 20 ML VIAL (10MG/ML) FOR IV START INTRADERMA ONE (11:41)
[2017-12-20] MEDS ORDERED: ONDANSETRON 4 MG/2 ML VIAL IVP ONE (11:42)
--- NOTE | 2017-12-20 12:25 | P.PN ---
Progress Note - Text Progress Note Date: 12/20/17 This is a very pleasant 82-year-old female patient who is known to Dr. De La Vega. She was found to have an endobronchial lesion in the distal main stem bronchus and had undergone bronchoscopy with biopsy which did not reveal any evidence of malignancy. However the patient did have significant hemoptysis prior to the procedure and was bleeding during the procedure and was difficult to get a good look. She is brought back today to have a repeat bronchoscopy with biopsy done in the operating room under general anesthesia. There's been no change in her health history since that time.
[2017-12-20] MEDS ORDERED: SUCCINYLCHOLINE CHLORIDE 100 MG/5 ML SYR IV ONE (12:29)
[2017-12-20] MEDS ORDERED: LABETALOL 5 MG/ML VIAL MDV ONE (12:29)
[2017-12-20] MEDS ORDERED: PROPOFOL 10 MG/ML 20 ML VIAL IV ONE (12:29)
--- NOTE | 2017-12-20 12:47 | P.PCN ---
Date of Procedure: 12/20/17 Preoperative Diagnosis: (Hemoptysis Postoperative Diagnosis: Normal airway examination, patent right mainstem bronchus intermedius, right middle lobe and right lower lobe and minimal mucosal inflammatory changes at the level of the secondary louie between the right middle lobe and right lower lobe. No evidence of any bleeding. No endobronchial tumors. Procedure(s) Performed: Flexible bronchoscopy, Anesthesia: MAC Surgeon: Iam De La Vega Flue Gas Analyst #1: Kerry Barahona Estimated Blood Loss (ml): 0 Pathology: other Condition: stable Disposition: same day Operative Findings: This procedure was done on the operating room. The patient had history of massive hemoptysis and the previous bronchoscopy that was done on this patient showed some unusual mucosal flap/lesion in the distal bronchus intermedius obstructing the right middle lobe bronchus. The endobronchial biopsies came back negative for malignancy. Based on that, a second look bronchoscopy was advised for further investigation This seizure was done and operating room. The patient was intubated by COLLEGE DIRECTOR in the usual fashion. The patient was intubated by #8 orotracheal tube. After achieving adequate sedation, the flexible bronchoscope was inserted through the orotracheal tube and was advanced into the lower trachea. The tip of the ETT was around 2 cm above the louie. The louie was sharp in the midline and the bilateral mainstem bronchi were patent. Minimal secretions that were dark was seen in the right mainstem bronchus however there was no evidence of any blood clots or any endobronchial bleed. I was pleased to see no endobronchial lesions or tumors in the distal right mainstem and in the bronchus intermedius. The previous noted abnormalities have completely resolved and there was some minimal mucosal inflammatory changes at the level of the louie between the right middle lobe and the right lower lobe. As for the airways, the bronchus intermedius, right middle lobe and the right lower lobe bronchus along with its subsegments were patent and I was able to visualize all segments and subsegments and no abnormalities were identified. Similarly, the right upper lobe was patent and within normal limits. The examination of the left side included the left mainstem bronchus left upper lobe bronchus and left lower lobe bronchus and no endobronchial abnormalities were noted. Based on these results, will biopsies were obtained, and the patient's previous bronchial lavage showed no microbial growth. The bronchoscope was removed and the patient was extubated and the patient was seen back in follow-up in the office in a few weeks time. The patient will be reassured.
[2017-12-20 13:01] VITALS: TEMP 97
[2017-12-20 13:35] VITALS: PULSE 85
[2017-12-20 13:48] VITALS: BP 139/65; RESP 20
== END 2017-12-20 14:09 | disposition home or self-care (01) ==
LOC: ORWHC2ENDO 10:50
PROVIDERS: ATTEND Internal Medicine Critical Care Medicine
DX: R91.1 Solitary pulmonary nodule (principal)
CPT/HCPCS: 31624; J2405; J0330; J2704

== ENCOUNTER 2018-02-19 10:25 | Emergency (ER) | payer MEDICARE, BC ==
[2018-02-19 10:31] VITALS: BP 198/85; PULSE 88; TEMP 98.1
[2018-02-19] MEDS ORDERED: HYDROcodone/APAP 5-325MG 1 EACH TAB PO STA (10:50)
[2018-02-19] MEDS ORDERED: METHOCARBAMOL 500 MG TAB PO STA (10:50)
--- NOTE | 2018-02-19 11:12 | XR ---
EXAM TYPE: LUMBAR SPINE X RAY SERIES COMPARISON: NONE HISTORY: Pain TECHNIQUE: 3 views are submitted. FINDINGS: There are vacuum disc and severe degenerative disc disease L3-4, L4-5 and L5-S1. Severe facet arthrop athy with grade 1 anterolisthesis L4 on L5 and L5 on S1. Degenerative disc disease at the thoracolumbar junction noted. Diffuse osteopenia noted. Pedicles int act. IMPRESSION: 1. Multilevel severe degenerative disc disease and facet arthropathy with anterolisthesis as discusse d above.
--- NOTE | 2018-02-19 11:13 | ED ---
General Adult HPI - General Chief complaint: Back Pain/Injury Stated complaint: Back pain Time Seen by Provider: 02/19/18 10:40 Source: patient, family Mode of arrival: ambulatory Limitations: no limitations - History of Present Illness Initial comments: Maile Rivas is an 82yo F with PMH of breast cancer treated with section and radiation. Patient presents to the emergency department today for evaluation of worsening back pain. She reports that she is usually very healthy, she is physically active but does experience intermittent back pain. Because of that she has made an appointment with an orthopedic surgeon to be evaluated later in this week. Patient reports she's experienced no trauma or injuries in the past 2 weeks, however she's had progressively worsening low back pain and is now experiencing pain that radiates from her right buttock down her right leg. Patient describes the pain as a constant discomfort, it seems to get worse with prolonged sitting or laying down. Pain seems somewhat better with standing or leaning forward, she states that she's been walking like "a hunchback" because that is her most comfortable position. She reports that she is able to walk, she is not experience any paresthesias or weakness in her leg. She has not experienced any bowel or bladder incontinence or urinary retention. She has normal strength in her bilateral lower extremities. Her gait is only altered by her discomfort. Patient denies any other complaints including fevers, chills, nausea, vomiting, chest pain, shortness of breath, abdominal pain, change in bowel or bladder habits. - Related Data Home Medications Medication Instructions Recorded Confirmed Levothyroxine Sodium [Synthroid] 50 mcg PO QAM 12/10/17 02/19/18 Naproxen Sodium [Aleve] 220 mg PO DAILY PRN 12/20/17 02/19/18 Lisinopril [Zestril] 10 mg PO DAILY 02/19/18 02/19/18 Previous Rx's Medication Instructions Recorded HYDROcodone/APAP 5-325MG [Aiken 5] 1 each PO Q6HR PRN #12 tab 02/19/18 Allergies Allergy/AdvReac Type Severity Reaction Status Date / Time No Known Allergies Allergy Verified 02/19/18 10:38 Review of Systems ROS Statement: Those systems with pertinent positive or pertinent negative responses have been documented in the HPI. ROS Other: All systems not noted in ROS Statement are negative. Constitutional: Denies: fever, chills Respiratory: Denies: dyspnea Cardiovascular: Denies: chest pain, palpitations Endocrine: Denies: fatigue Gastrointestinal: Denies: abdominal pain, nausea, vomiting Genitourinary: Denies: dysuria, frequency, hematuria Musculoskeletal: Reports: back pain Skin: Denies: rash Neurological: Denies: headache, weakness, numbness, paresthesias, confusion Psychiatric: Denies: anxiety, depression Hematological/Lymphatic: Denies: easy bleeding, easy bruising Past Medical History Past Medical History: Cancer, Pneumonia, Thyroid Disorder Additional Past Medical History / Comment(s): Breast cancer with a previous right-sided mastectomy more than 20 years ago and the patient hasn't undergone a previous lumpectomy on the left breast. She also has hypothyroidism. History of Any Multi-Drug Resistant Organisms: None Reported Past Surgical History: Appendectomy, Breast Surgery, Hysterectomy Additional Past Surgical History / Comment(s): right side masectomy; left side breast lumpectomy,bronchoscopy Nov Past Anesthesia/Blood Transfusion Reactions: No Reported Reaction Additional Past Anesthesia/Blood Transfusion Reaction / Comment(s): no hx blood transfusion Past Psychological History: No Psychological Hx Reported Smoking Status: Former smoker Past Alcohol Use History: None Reported Past Drug Use History: None Reported - Past Family History Mother Family Medical History: Cancer Father Family Medical History: Cancer Brother(s) Family Medical History: Cancer General Exam Limitations: no limitations General appearance: alert, in no apparent distress Head exam: Present: atraumatic, normocephalic Eye exam: Present: normal appearance, PERRL ENT exam: Present: normal exam Neck exam: Present: normal inspection Respiratory exam: Present: normal lung sounds bilaterally. Absent: respiratory distress Cardiovascular Exam: Present: regular rate GI/Abdominal exam: Present: soft. Absent: distended, tenderness, guarding, rebound, rigid Rectal exam: Present: deferred Extremities exam: Present: normal inspection, full ROM, normal capillary refill. Absent: pedal edema, joint swelling Back exam: Absent: CVA tenderness (R), CVA tenderness (L) Neurological exam: Present: alert, oriented X3. Absent: motor sensory deficit Expanded Motor strength exam: RLE: 5, LLE: 5 DTR: Achilles Tendon (R): 3+, Achilles Tendon (L): 3+ Psychiatric exam: Present: normal affect, normal mood Skin exam: Present: warm, dry Course Vital Signs 02/19/18 02/19/18 10:28 11:31 Temperature 98.1 F Pulse Rate 88 Respiratory 18 19 Rate Blood Pressure 198/85 O2 Sat by Pulse 97 Oximetry Medical Decision Making - Medical Decision Making Patient was seen and evaluated, history was obtained from the patient and review of medical record Patient with progressively worsening low back pain now experiencing sciatic- like symptoms radiating down her right leg No bowel or bladder incontinence or retention, no paresthesias, no numbness, no weakness in the lower extremities History and physical exam are concerning for spinal stenosis considering the patient's improved comfort when leaning forward, in addition she appears to be suffering from sciatic-like pain Considering the patient's history of recurrent breast cancer I will obtain radiographs to evaluate for any bony lesions Oral analgesia and muscle relaxers were ordered Patient has established follow-up with orthopedic surgeon, Dr Reeves this for further evaluation Xrays with severe degenerative disc disease, no evidence of acute fracture or metastatic disease - is also discussed with the patient who expresses relief that there is no evidence of malignancy. Patient reports some improvement in her symptoms after oral pain medications. At this point I will plan to discharge the patient home with oral analgesia and a plan to follow up with orthopedic surgery on as scheduled. Patient was advised that she cannot drive while taking pain medications due to the risk of sedation. In addition I will not prescribe muscle relaxers along with the narcotic pain medication due to the risk of sedation. Patient was advised to call 911 or return to the emergency department if she develops any worsening pain, weakness in her legs, inability to urinate or urinary or bowel incontinence. All questions pertaining to care were answered to the best of my ability the patient was discharged home - Lab Data Lab Results 02/19/18 Range/Units 11:20 Urine Color Yellow Urine Appearance Clear (Clear) Urine pH 5.5 (5.0-8.0) Ur Specific [place]cott 1.017 (1.001-1.035) Urine Protein Negative (Negative) Urine Glucose (UA) Negative (Negative) Urine Ketones Negative (Negative) Urine Blood Negative (Negative) Urine Nitrite Negative (Negative) Urine Bilirubin Negative (Negative) Urine Urobilinogen <2.0 (<2.0) mg/dL Ur Leukocyte Esterase Trace H (Negative) Urine RBC 2 (0-5) /hpf Urine WBC 1 (0-5) /hpf Ur Squamous Epith Cells <1 (0-4) /hpf Urine Mucus Occasional H (None) /hpf Disposition Clinical Impression: Sciatica, Degeneration of intervertebral disc Disposition: HOME SELF-CARE Condition: Good Instructions: Acute Low Back Pain (ED) Prescriptions: HYDROcodone/APAP 5-325MG [Aiken 5] 1 each PO Q6HR PRN #12 tab PRN Reason: Pain Referrals: Kalen Allen MD [Primary Care Provider] - 1-2 days
[2018-02-19 11:33] LABS: Appearance,Urine Clear (Clear); Bilirubin,Urine Negative (Negative); Blood,Urine Negative (Negative); Color,Urine Yellow; Glucose,Urine (UA) Negative (Negative); Ketones,Urine Negative (Negative); Leukocyte Esterase,Urine Trace (Negative); Mucus,Urine Occasional /hpf; Nitrite,Urine Negative (Negative); PH, Urine 5.5 (5.0-8.0); Protein,Urine Negative (Negative); RBC,Urine 2 /hpf (0-5); Specific Gravity,Urine 1.017 (1.001-1.035); Squamous Epithelial Cell,Urine <1 /hpf (0-4); Urobilinogen,Urine <2.0 mg/dL (<2.0); WBC,Urine 1 /hpf (0-5)
[2018-02-19 11:34] VITALS: RESP 19
== END 2018-02-19 11:56 | disposition home or self-care (01) ==
LOC: EC 10:25
DX: M51.37 Other intervertebral disc degeneration, lumbosacral region (principal); M54.30 Sciatica, unspecified side; E03.9 Hypothyroidism, unspecified; Z85.3 Personal history of malignant neoplasm of breast; Z87.891 Personal history of nicotine dependence; Z79.899 Other long term (current) drug therapy
CPT/HCPCS: 72100; 81001; 99283

== ENCOUNTER → 2018-03-21 | Outpatient (CLI) | payer MEDICARE, BC ==
--- NOTE | 2018-03-21 13:13 | MM ---
Reason for exam: additional evaluation requested from prior study. Last mammogram was performed 1 year ago. History: Patient is postmenopausal, has history of other cancer at age 78, and has history of breast cancer at age 43. Family history of breast cancer in mother at age 56. Lumpectomy of the left breast, December 30, 2013. Malignant US LT VAD breast biopsy of the left breast, December 19, 2013. Radiation therapy of the left breast, 2013. Silicone gel implant in the right breast, 1979. Reduction of the left breast, 1979. Mastectomy of the right breast, 1977. Excisional biopsy of the left breast. Radiation therapy of the right breast. Took hormonal contraceptives for 5 years beginning at age 33. Took estrogen for 1 year beginning at age 43. Physical Findings: Nurse did not find any significant physical abnormalities on exam. MG 3D Diag Mammo W/Cad LT CC and MLO view(s) were taken of the left breast. Prior study comparison: March 20, 2017, left breast MG 3d diag mammo w/cad LT. September 19, 2016, left breast MG 3d diag mammo w/cad LT. The breast tissue is heterogeneously dense. This may lower the sensitivity of mammography. Post surgical changes redemonstrated. Asymmetric density laterally appears more defined but was present in 2012. Precautionary 6 month follow up recommended. Central asymmetric density on the MLO view was present in 2014. These results were verbally communicated with the patient and result sheet given to the patient on 03/21/18. ASSESSMENT: Probably benign, BI-RAD 3 RECOMMENDATION: Follow-up diagnostic mammogram of the left breast in 6 months.
== END | disposition home or self-care (01) ==
LOC: RADMAMWWP 10:55
PROVIDERS: ATTEND Radiology Diagnostic Radiology
DX: C50.911 Malignant neoplasm of unspecified site of right female breast (principal); Z88.3 Allergy status to other anti-infective agents
CPT/HCPCS: 77065; G0279; 77061

== ENCOUNTER → 2018-06-15 | Outpatient (CLI) | payer MEDICARE, BC ==
--- NOTE | 2018-06-16 16:13 | US ---
EXAMINATION TYPE: US kidneys/renal and bladder DATE OF EXAM: 06/15/2018 COMPARISON: NONE CLINICAL HISTORY: R94.4 ABN KIDNEY FUNCTIONS. EXAM MEASUREMENTS: Right Kidney: 9.1 x 4.4 x 4.4 cm Left Kidney: 9.6 x 4.6 x 4.7 cm Right Kidney: No hydronephrosis or masses seen Left Kidney: Mild amount of hydronephrosis visualized Bladder: wnl as visualized, not fully distended Bilateral Jets seen: No IMPRESSION: Mild left-sided hydronephrosis without identified etiology. CT urogram could be performed to evaluate for source of obstruction.
== END | disposition home or self-care (01) ==
LOC: RADUSWWP 15:20
PROVIDERS: ATTEND Family Medicine
DX: N13.30 Unspecified hydronephrosis (principal)
CPT/HCPCS: 76770

== ENCOUNTER → 2018-06-29 | Outpatient (CLI) | payer MEDICARE, BC ==
[2018-06-29 16:02] LABS: Blood Urea Nitrogen 16 mg/dL (7-17)
--- NOTE | 2018-06-30 15:17 | US ---
EXAMINATION TYPE: US venous doppler duplex LE LT DATE OF EXAM: 06/29/2018 4:02 PM COMPARISON: NONE CLINICAL HISTORY: R22.42 Swelling Left leg, R93.4 Abn. Ultrasound. Left ankle swelling- better with e levating foot. No hx of blood clots. No blood thinners. No redness.. SIDE PERFORMED: Left TECHNIQUE: The lower extremity deep venous system is examined utilizing real time linear array sonog kehinde with graded compression, doppler sonography and color-flow sonography. VESSELS IMAGED: External Iliac Vein (EIV) Common Femoral Vein Deep Femoral Vein Greater Saphenous Vein * Femoral Vein Popliteal Vein Small Saphenous Vein * Proximal Calf Veins (* superficial vessels) Left Leg: Negative for DVT. FV appears small in size. IMPRESSION: 1. Left lower extremity ultrasound negative for deep venous thrombosis. 2. Incidental note of small caliber appearing left femoral vein.
--- NOTE | 2018-07-01 13:26 | CT ---
EXAMINATION TYPE: CT urogram wo/w con DATE OF EXAM: 06/29/2018 COMPARISON: Ultrasound kidneys 06/15/2018 INDICATION: abnormal ultrasound of kidney DLP: 2016 mGycm, Automated exposure control for dose reduction was used. CONTRAST: 100 mL of Isovue 370. Study performed TECHNIQUE: Axial images were obtained from above the diaphragm to the pubic rami in the axial plane a t 5 mm thick sections. Reconstructed images are reviewed on the computer in the coronal plane. FINDINGS: Limited CT sections are obtained the lung bases. The lung bases are clear. CT ABDOMEN: Liver: Normal Spleen: Normal Pancreas: Normal Adrenal glands: The adrenal glands are normal. Gallbladder: Normal Kidneys: No masses are evident. No hydronephrosis is present. Peripelvic cysts are present on the l eft and to a lesser degree on the right. This can simulate mild hydronephrosis on ultrasound. Ureters appear normal. Delayed images were obtained through the kidneys, which remain unremarkable. Three-D reconstructed images performed separately on the ventricular computer by the technologist are review ed. No ureteral filling defects hydronephrosis or urinary bladder abnormalities are identified. Aorta: Vascular calcification is within the aorta. Inferior vena cava: Normal. CT PELVIS: Loops of bowel within the abdomen and pelvis are normal. There are loops of bowel which are incom pletely distended or lack oral contrast limiting their evaluation. Appendix: Normal as visualized. Urinary bladder: Normal. Small urinary bladder diverticulum is identified. Genitourinary structures: Uterus and ovaries are not identified. Osseous structures: No suspicious lytic or sclerotic lesions. Degenerative changes are within the lum bar spine. IMPRESSIONS: 1. Bilateral peripelvic cysts without evidence of hydronephrosis. Peripelvic cysts can simulate hydr onephrosis on ultrasound likely accounts for the findings. 2. Urinary bladder diverticulum.
== END | disposition home or self-care (01) ==
LOC: RADUSMAIN 15:20
PROVIDERS: ATTEND Family Medicine
DX: N32.3 Diverticulum of bladder (principal); N94.89 Other specified conditions associated with female genital organs and menstrual cycle; R22.42 Localized swelling, mass and lump, left lower limb
CPT/HCPCS: 82565; 84520; 93971; 74178; 36415; 74400; Q9967

== ENCOUNTER → 2019-03-25 | Outpatient (CLI) | payer MEDICARE, BC ==
--- NOTE | 2019-03-25 11:31 | MM ---
Reason for exam: additional evaluation requested from prior study. Last mammogram was performed 1 year ago. History: Patient is postmenopausal, has history of other cancer at age 78, and has history of breast cancer at age 43. Family history of breast cancer in mother at age 56. Lumpectomy of the left breast, December 30, 2013. Malignant US LT VAD breast biopsy of the left breast, December 19, 2013. Radiation therapy of the left breast, 2013. Silicone gel implant in the right breast, 1979. Reduction of the left breast, 1979. Mastectomy of the right breast, 1977. Excisional biopsy of the left breast. Radiation therapy of the right breast. Took hormonal contraceptives for 5 years beginning at age 33. Took estrogen for 1 year beginning at age 43. Physical Findings: Nurse did not find any significant physical abnormalities on exam. MG 3D Diag Mammo W/Cad LT CC and MLO view(s) were taken of the left breast. Prior study comparison: March 21, 2018, left breast MG 3d diag mammo w/cad LT. March 20, 2017, left breast MG 3d diag mammo w/cad LT. The breast tissue is heterogeneously dense. This may lower the sensitivity of mammography. Stable benign calcifications. Stable lumpectomy changes. These results were verbally communicated with the patient and result sheet given to the patient on 03/25/19. ASSESSMENT: Benign, BI-RAD 2 RECOMMENDATION: Follow-up diagnostic mammogram of the left breast in 1 year.
== END | disposition home or self-care (01) ==
LOC: RADMAMWWP 10:49
PROVIDERS: ATTEND Radiology Diagnostic Radiology
DX: Z08 Encounter for follow-up examination after completed treatment for malignant neoplasm (principal); Z85.3 Personal history of malignant neoplasm of breast
CPT/HCPCS: 77065; G0279; 77061